=== PATIENT | female | born 1990 | race Caucasian/White ===

== ENCOUNTER 2020-05-05 01:12 | Outpatient (CLI) | payer BC, SELFPAY ==
[2020-05-05 20:15] LABS: SARS-CoV-2 RNA PCR Negative
== END 2020-05-05 01:13 | disposition home or self-care (01) ==
LOC: ANHCOVIDDT 01:12
PROVIDERS: PCP Family Medicine; Visit Provider Internal Medicine Gastroenterology
DX: Z01.812 Encounter for preprocedural laboratory examination (principal); Z11.59 Encounter for screening for other viral diseases
CPT/HCPCS: 87635; C9803; U0003

== ENCOUNTER 2020-05-09 00:13 | Day surgery (SDC) | payer BC, SELFPAY ==
[2020-05-02 13:26] VITALS: BMI 19.6
[2020-05-09 06:16] VITALS: BP 128/66; PULSE 102; RESP 16; TEMP 37.1; O2SAT 100
[2020-05-09] MEDS: LACTATED RINGERS 1,000 ML 150 ML IV CONT (06:19)
--- NOTE | 2020-05-09 07:21 | P.PNAN_ITS ---
Anes - Initial Pre Proc Eval Procedure: Operation Date: 05/09/20 07:30 Proposed Procedures p Colonoscopy - Mohan Kennedy MD Date/Time: 05/09/20 07:21 Surgeon: Mohan Kennedy MD Pre Op Diagnosis: Diarrhea Patient Data Age: 30 Gender: F Height: 5 ft 11 in Weight: 62.5 kg Last Vital Signs Temp 98.8 F 05/09/20 06:16 Pulse 102 H 05/09/20 06:16 Resp 16 05/09/20 06:16 BP 128/66 05/09/20 06:16 Pulse Ox 100 05/09/20 06:16 Allergies Allergy/AdvReac Type Severity Reaction Status Date / Time No Known Allergies Allergy Verified 05/09/20 06:15 Home Medications Medication Instructions Recorded Confirmed Type levonorgestrel-ethinyl estrad 1 tablet PO DAILY 05/02/20 05/02/20 History [Lessina] Patient hx anesthesia problems: none Family hx anesthesia problems: none [facility] Past Medical History Medical History (Updated 05/09/20 @ 07:19 by Jason Norman MD) Healthy adult Social History Social History Alcohol use details: once per month Living arrangements: alone Gender identity (if verbalized by the patient): Female Spiritual care concerns: No Anes - Eval Final PreProcedure Day of Procedure 05/09/20 07:21 Patient weight: normal Heart: regular rate and rhythm Lungs: clear to auscultation Airway: Mallampati scale class II Neurological: alert and oriented Last oral intake: >/= 8 hours ASA classification: I Emergent: no Anesthetic plan: proceed Anesthesia type and monitoring: general GIVS and standard monitoring Informed Consent: The patient's anesthetic plan and its attendant risks and benefits were discussed with the patient/family/POA. Questions were solicited and answers provided to the satisfaction of the patient/family/POA.
--- NOTE | 2020-05-09 08:00 | WPDGICN ---
Assessment and Plan Assessment and plan (1) Chronic diarrhea: Code(s): K52.9 - Noninfective gastroenteritis and colitis, unspecified Status: Acute Assessment and Plan: Patient has chronic diarrhea poorly responsive to outpatient management. Stool cultures have been negative. Celiac workup is negative. Plan is for colonoscopy today. If this is negative high-fiber diet will be advised once again. (2) Hemorrhoids: Code(s): K64.9 - Unspecified hemorrhoids Status: Acute Assessment and Plan: Hemorrhoids of cause significant discomfort for this patient plan is for hemorrhoidal creams to be XP applied externally. Fiber supplementation will start with a diet. Consider hemorrhoid banding if bleeding persists. This can be performed outpatient my office. GI Consult Note Consult date/time: 05/09/20 08:00 HPI: Shena Patel is a 30 year old female Seen in evaluation at the request of Dr. Esau Kaur. patient complains of chronic diarrhea. For 7 years she has had ongoing diarrhea. This appears to have worsened recently. She states she rarely has a normal stool. Typically stool is soft when watery. She denies abdominal pain. She has recently had difficulty with hemorrhoids. She complains of occasional rectal bleeding and pain. She uses cream suppositories and lotions to help minimize this. She states in the past extensive workup is excluded celiac sprue and other problems. She has tried fiber probiotics and other medications without relief of symptoms. Patient presents today for colonoscopy. Review of Systems Review of Systems: All systems reviewed & are unremarkable except as noted in HPI and below PMFSH Past Medical History Medical History (Updated 05/09/20 @ 08:02 by Mohan Kennedy MD) Healthy adult Social History Social History Alcohol use details: once per month Living arrangements: alone Gender identity (if verbalized by the patient): Female Spiritual care concerns: No Meds Home Medications and Allergies Home Medications Medication Instructions Recorded Confirmed Type levonorgestrel-ethinyl estrad 1 tablet PO DAILY 05/02/20 05/02/20 History [Lessina] Allergies Allergy/AdvReac Type Severity Reaction Status Date / Time No Known Allergies Allergy Verified 05/09/20 06:15 Vital Signs Vital Signs - 24 hr 05/09/20 06:16 Temperature 98.8 F Pulse Rate 102 H Respiratory Rate 16 Blood Pressure 128/66 Pulse Oximetry 100 Exam Narrative: Exam Narrative: Physical exam reveals patient to be alert. Vital signs stable. HEENT exam unremarkable. Lungs are clear to auscultation and to percussion. Heart is without murmur or extra sounds. Abdominal exam bowel sounds are present soft nontender with no organomegaly. Digital external rectal exam is normal.
[2020-05-09 08:02] VITALS: BP 93/48; PULSE 81; RESP 19; O2SAT 97
[2020-05-09 08:12] VITALS: BP 94/49; PULSE 72; RESP 17; O2SAT 100
[2020-05-09 08:22] VITALS: BP 106/68; PULSE 87; RESP 21; O2SAT 97
== END 2020-05-09 08:45 | disposition home or self-care (01) ==
PROVIDERS: PCP Family Medicine; Visit Provider Internal Medicine Gastroenterology
PROC: 0DJD8ZZ Inspection of Lower Intestinal Tract, Via Natural or Artificial Opening Endoscopic (ICD-10-PCS; CPT 45378; principal; 2020-05-09 07:30)
DX: K52.9 Noninfective gastroenteritis and colitis, unspecified (principal); K64.8 Other hemorrhoids
CPT/HCPCS: 45380; 88305; J2704; J7120

== ENCOUNTER 2020-06-18 09:47 | Emergency (ER) | payer BC, SELFPAY ==
--- NOTE | 2020-06-18 09:58 | ED.EAR ---
HPI - Ear Problem General Chief complaint: Ear Stated complaint: possible ear infection Time Seen by Provider: 06/18/20 10:06 Source: patient and RN notes reviewed Mode of arrival: ambulatory Limitations: no limitations History of Present Illness HPI Narrative: 30-year-old female presents with concern for bilateral ear pain. Reports ringing in her ears intermittent vertigo for 4 days. Reports ear fullness started several weeks ago. She denies any nasal congestion, rhinorrhea, sore throat, headache, cough, shortness of breath, fever. Reports she was taking allergy medicine with very little relief. Denies drainage from the ears. Complaint: ear pain Related Data Home Medications Medication Instructions Recorded Confirmed levonorgestrel-ethinyl estrad 1 tablet PO DAILY 06/18/20 06/18/20 [Lessina] Allergies Allergy/AdvReac Type Severity Reaction Status Date / Time No Known Allergies Allergy Verified 06/18/20 10:02 Review of Systems Review of Systems: Narrative: CONSTITUTIONAL: Denies malaise, chills, sweats, or fever. EYES: Denies visual changes, redness, or discharge. ENT: Denies rhinorrhea, congestion, sinus pain, and sore throat. Reports bilateral CARDIOVASCULAR: Denies chest pain, palpitations, or edema. RESPIRATORY: Denies cough or dyspnea. GASTROINTESTINAL: Denies abdominal pain, nausea, vomiting, diarrhea SKIN: Denies rash or itching. MUSCULOSKELETAL: Denies myalgia. NEUROLOGIC: Denies headache. All systems reviewed & are unremarkable except as noted in HPI and below PMFSH Past Medical History Medical History (Updated 06/18/20 @ 10:15 by Ritu Lobo NP) Healthy adult Social History Social History Gender identity (if verbalized by the patient): Female Spiritual care concerns: No Comments At time of signature, agree with nursing past medical, surgical, social and family history. There is no relevant family history pertinent to the presenting complaint Exam Narrative: Exam Narrative: GENERAL: Well-appearing, well-nourished, and in no acute distress. HEAD: Normocephalic EYES: PERRLA, conjunctivae clear ENT: Nares clear, turbinates erythematous, clear discharge. Mucous membranes moist. TM pearly valentine with dull light reflex bilaterally; no tragal tenderness. Oropharynx not erythematous without lesions. Tonsils not enlarged and without exudate, no drooling, no hoarseness, no trismus, uvula midline. NECK: Supple. No lymphadenopathy CHEST: Clear to auscultation, breath sounds equal. No wheezing, rhonchi, rales, or stridor. No respiratory distress, speaks in full sentences. HEART: Regular rate and rhythm. No murmur heard. SKIN: Warm, dry, no rash. NEURO: Alert and oriented x3. PSYCH: Normal mood and affect Course Course Emergency Course: Patient is aware of diagnosis, understands and agrees to treatment plan. Anticipatory guidance given. Patient agrees to follow-up as directed and is aware of reasons to seek care at the emergency department. Portions of this record may have been created with voice recognition software Vital Signs Vital signs: Vital Signs Temperature 97.4 F L 06/18/20 10:08 Pulse Rate 89 06/18/20 10:08 Respiratory Rate 18 06/18/20 10:08 Blood Pressure 126/72 06/18/20 10:08 Pulse Oximetry 100 06/18/20 10:08 Temperature 97.4 F L 06/18/20 10:08 Pulse Rate 89 06/18/20 10:08 Respiratory Rate 18 06/18/20 10:08 Blood Pressure 126/72 06/18/20 10:08 Pulse Oximetry 100 06/18/20 10:08 Reviewed. Medical Decision Making MDM Narrative Medical decision making narrative: Differential diagnosis considered: [place] virus, strep pharyngitis, allergic rhinitis, upper respiratory tract infection, sinusitis, rhinosinusitis, nasopharyngitis. viral pharyngitis, otitis media, otitis externa, pneumonia, bronchitis, viral cough syndrome, viral syndrome, and influenza. Exam findings show no acute concerns or changes; patient is non-toxic appearing and is in no di
[2020-06-18 10:08] VITALS: BP 126/72; PULSE 89; RESP 18; TEMP 36.3; O2SAT 100
== END 2020-06-18 10:18 | disposition home or self-care (01) ==
PROVIDERS: Emergency Provider Nurse Practitioner
DX: H65.193 Other acute nonsuppurative otitis media, bilateral (principal)
CPT/HCPCS: 99213; G0463

== ENCOUNTER 2022-01-30 20:30 | Emergency (ER) | payer OTHER, SELFPAY ==
[2022-01-30] VITALS (17 sets, daily range): BP systolic 86–122; BP diastolic 41–83; PULSE 58–97; RESP 8–21; TEMP 36; O2SAT 86–100
[2022-01-30 20:53] LABS: Basophils Absolute Auto 0.1 K/mm3 (0.0-0.1); Basophils Percent Auto 0.7 % (0.2-1.2); Eosinophils Absolute Auto 0.1 K/mm3 (0-0.3); Eosinophils Percent Auto 0.8 % (0-4.4); Hematocrit 38.7 % (37.0-47.0); Hemoglobin 12.4 g/dL (12.0-15.0); Immature Granulocyte Absolute 0.04 K/mm3 (0.00-0.031); Immature Granulocyte Percent A 0.3 % (0-0.5); Lymphocytes Absolute Auto 2.93 K/mm3 (0.9-3.2); Lymphocytes Percent Auto 21.9 % (18.3-44.2); Mean Corpuscular Hemoglobin 27.7 pg (26-34); Mean Corpuscular Volume 86.6 fl (80-100); Mean Platelet Volume 11.4 fl (7.4-10.4); Monocytes Absolute Auto 0.9 K/mm3 (0.1-0.6); Monocytes Percent Auto 6.7 % (2.6-8.5); Neutrophils Absolute Auto 9.3 K/mm3 (1.3-6.7); Neutrophils Percent Auto 69.6 % (45.5-73.1); Platelet Count Result 256 k/mm3 (150-375); Red Blood Count 4.47 M/mm3 (4.2-5.4); Red Cell Distribution Width 13.3 % (11.5-14.5); White Blood Count 13.4 K/mm3 (4.5-10.0)
[2022-01-30] MEDS: SODIUM CHLORIDE 0.9% IV 1,000 ML 999 ML (21:00)
[2022-01-30 21:05] LABS: Alanine Aminotransferase 24 U/L (6-35); Albumin Level 4.6 g/dL (3.5-5.1); Alkaline Phosphatase 37 U/L (38-126); Anion Gap 18 mmol/L (8-16); Aspartate Amino Transferase 34 U/L (14-36); Bilirubin,Total 0.4 mg/dL (0.2-1.3); Blood Urea Nitrogen 12 mg/dL (7-17); Calcium 8.6 mg/dL (8.4-10.2); Carbon Dioxide 18 mmol/L (22-30); Chloride 99 mmol/L (98-107); Estimated CRCL calculation 108 ml/min; Estimated Glomerular Filt Rate > 60; Glucose 179 mg/dL (65-110); Lipase 118 U/L (23-300); Potassium 3.2 mmol/L (3.4-5.0); Sodium 135 mmol/L (137-145)
[2022-01-30] MEDS: ONDANSETRON INJ 4 MG/2 ML VIAL IV PUSH (21:29)
[2022-01-30] MEDS: diazePAM INJ (*CRX) 10 MG/2 ML SYRINGE 2.5 MG IV PUSH (21:29)
--- NOTE | 2022-01-30 22:07 | PC.NURSE ---
Pt states she does not feel she can keep po pill down at this time, willing to try soon
[2022-01-30] MEDS: MECLIZINE HCL 25 MG TABLET PO (22:55)
[2022-01-30 22:56] LABS: Appearance Urine Clear (Clear); Bilirubin Urine Negative (Negative); Color Urine Yellow (Yellow); Glucose Urine UA Negative (Negative); Ketones Urine 2+ mg/dL (Negative); Leukocyte Esterase Ur Negative LEU/UL (Negative); Nitrate Urine Negative (Negative); Protein Urine Negative (Negative); Urobilinogen Urine 0.2 mg/dL (<2.0); pH Urine 8.5 (5.0-9.0)
[2022-01-30 23:03] LABS: Add Urine Microscopic? YES; Bacteria Urine Trace /hpf; Blood Urine Trace (Negative); Mucus Urine Rare /lpf; RBC Urine 0-2 /hpf (0-2); Squamous Epithelial Cell Urine Many /hpf (Few); WBC Urine 0-3 /hpf
[2022-01-31] VITALS: PULSE 59; RESP 12; O2SAT 99
--- NOTE | 2022-01-31 00:11 | ED.DIZZY ---
HPI - Dizziness General Chief Complaint: Dizziness Stated Complaint: Vertigo, N/V Time Seen by Provider: 01/30/22 21:02 History of Present Illness HPI Narrative: Patient is a 31-year-old female who presents ER with dizziness. Sudden onset at home. Associated with sweats and vomiting. Worse with any type of movement. Patient has been having ringing in the ears. She reports some mild sinus congestion. No cough or fevers. No weakness or numbness in an arm or leg. Related Data Home Medications Medication Instructions Recorded Confirmed levonorgestrel-ethinyl estradiol 1 tablet PO DAILY 06/18/20 06/18/20 0.1 mg-20 mcg tablet (Lessina) Allergies Allergy/AdvReac Type Severity Reaction Status Date / Time No Known Allergies Allergy Verified 06/18/20 10:02 Review of Systems Review of Systems: All systems reviewed & are unremarkable except as noted in HPI and below Constitutional: Constitutional: Denies chills, Reports fatigue and Denies fever(s) ENT: Reports vertigo, Reports nasal congestion and Denies sore throat Comments: Tinnitus Cardiovascular: Cardiovascular: Denies chest pain Gastrointestinal: Gastrointestinal: Denies abdominal pain, Reports nausea and Reports vomiting Neurologic: Denies headache(s), Denies focal weakness and Denies numbness PMFSH Past Medical History Medical History (Updated 01/31/22 @ 00:30 by Tomas Regalado MD) Healthy adult Surgical History Surgical History (Updated 01/31/22 @ 04:09 by Tomas Regalado MD) No pertinent past surgical history Social History Social History Alcohol use details: once per month Gender identity (if verbalized by the patient): Female Spiritual care concerns: No Exam Narrative: GENERAL: Laying on the right side not willing to move and uncomfortable appearing, well-nourished. HEAD: Normocephalic, atraumatic. ENT: Mucous membranes moist. Air-fluid levels behind the eardrums bilaterally. Eustachian tubes popping with your manipulation. CHEST: Clear to auscultation. No respiratory distress. HEART: Regular rate and rhythm. Normal peripheral pulses. EXTREMITIES: Normal range of motion. No edema. SKIN: Warm, dry, no rash. NEURO: Alert and oriented x3. PSYCH: Normal mood and affect. Course Course Emergency Course: Marked improvement with fluids/Valium/meclizine. Nausea quelled with Zofran. Discharge home with supportive medication. Vital Signs Vital signs: Vital Signs Temperature 96.8 F L 01/30/22 20:33 Pulse Rate 97 01/30/22 20:33 Respiratory Rate 20 01/30/22 20:33 Blood Pressure 122/53 L 01/30/22 20:33 Pulse Oximetry 100 01/30/22 20:33 Oxygen Delivery Room Air 01/30/22 20:33 Temperature 96.8 F L 01/30/22 20:33 Pulse Rate 62 01/31/22 00:20 Respiratory Rate 18 01/31/22 00:20 Blood Pressure 100/59 L 01/31/22 00:20 Pulse Oximetry 100 01/31/22 00:20 Oxygen Delivery Room Air 01/30/22 20:33 MDM - Dizziness Lab Data Result diagrams: 01/30/22 20:48 01/30/22 20:48 Labs: Lab Results 01/30/22 01/30/22 01/30/22 Range/Units 20:48 20:48 22:51 WBC 13.4 H (4.5-10.0) K/mm3 RBC 4.47 (4.2-5.4) M/mm3 Hgb 12.4 (12.0-15.0) g/dL Hct 38.7 (37.0-47.0) % MCV 86.6 (80-100) fl MCH 27.7 (26-34) pg MCHC 32.0 (32-36) g/dl RDW 13.3 (11.5-14.5) % Plt Count 256 (150-375) k/mm3 MPV 11.4 H (7.4-10.4) fl Immature Gran % (Auto) 0.3 (0-0.5) % Neut % (Auto) 69.6 (45.5-73.1) % Lymph % (Auto) 21.9 (18.3-44.2) % [place] % (Auto) 6.7 (2.6-8.5) % Eos % (Auto) 0.8 (0-4.4) % Baso % (Auto) 0.7 (0.2-1.2) % Lymph # (Auto) 2.93 (0.9-3.2) K/mm3 [place] # (Auto) 0.9 H (0.1-0.6) K/mm3 Eos # (Auto) 0.1 (0-0.3) K/mm3 Baso # (Auto) 0.1 (0.0-0.1) K/mm3 Abs Immat Gran (auto) 0.04 H (0.00-0.031) K/mm3 Absolute Neuts (auto) 9.3 H (1.3-6.7) K/mm3 Absolute Nucleated RBC 0.0 (0.0
[2022-01-31 00:20] VITALS: BP 100/59; PULSE 62; RESP 18; O2SAT 100
== END 2022-01-31 00:57 | disposition home or self-care (01) ==
PROVIDERS: Emergency Provider Emergency Medicine
DX: R42 Dizziness and giddiness (principal)
CPT/HCPCS: 36415; 80053; 81001; 81025; 83690; 85025; 96361; 96374; 96375; 99284; A9270; J2405; J3360; J7030

== ENCOUNTER 2022-12-15 13:34 | Outpatient (CLI) | payer BC, OTHER, SELFPAY ==
--- NOTE | ~2022-12-15 | MR_ITS ---
MRI of the brain Clinical History: Asymmetric hearing loss Technique: Axial and sagittal T1-weighted images were acquired. These were followed by axial T2-weigh phani, diffusion weighted, gradient, and FLAIR images. Thin cut coronal T1-weighted and T2-weighted, an d thin cut axial T1-weighted images were performed through the internal auditory canals. Following in travenous administration of 14 cc MultiHance gadolinium, T1-weighted fat-sat imaging was performed th rough the brain in the axial and coronal planes. Thin cut T1-weighted postcontrast imaging was also p erformed through the internal auditory canals in the axial and coronal planes. Findings: No abnormal signal seen in the brain parenchyma. No acute infarct, intracranial hemorrhage, or mass lesion. Ventricles and subarachnoid spaces are unremarkable. Orbits are unremarkable. Paranasal sinuses and m astoid air cells are clear. Major intracranial flow voids are intact. Sagittal midline structures are intact. No abnormal mass lesion or enhancement seen at the CP angle regions or internal auditory canals. No a bnormal postcontrast enhancement seen in the brain. IMPRESSION: No significant abnormality seen. Reviewed, dictated and finalized at location M.
== END 2022-12-15 13:35 | disposition home or self-care (01) ==
LOC: ANHIMG 13:38
PROVIDERS: PCP Family Medicine Sports Medicine
DX: H91.90 Unspecified hearing loss, unspecified ear (principal)
CPT/HCPCS: 70553; A9577